=== PATIENT | male | born 1975 | race Caucasian/White ===

== ENCOUNTER → 2022-10-26 11:17 | Outpatient (BNVA) | payer BC, SELFPAY | PROVIDERS: Visit Provider Specialist | DX: E78.5 Hyperlipidemia, unspecified (principal); I10 Essential (primary) hypertension; I25.10 Atherosclerotic heart disease of native coronary artery without angina pectoris | CPT/HCPCS: 36415; 80061; 80076 ==

== ENCOUNTER → 2022-10-28 07:45 | Outpatient (BNVA) | payer BC, SELFPAY | PROVIDERS: Visit Provider Specialist | DX: R07.9 Chest pain, unspecified (principal) | CPT/HCPCS: 93005 ==

== ENCOUNTER → 2023-04-27 10:37 | Outpatient (BNVA) | payer BC, SELFPAY | PROVIDERS: Visit Provider Internal Medicine Cardiovascular Disease | DX: R00.1 Bradycardia, unspecified (principal); R06.02 Shortness of breath; R25.2 Cramp and spasm; N18.9 Chronic kidney disease, unspecified; Z79.899 Other long term (current) drug therapy | CPT/HCPCS: 36415; 80048; 83735; 84443; 93005 ==

== ENCOUNTER 2023-05-11 09:10 | Outpatient (CLI) | payer BC, SELFPAY ==
--- NOTE | 2023-05-11 10:15 | USCV_ITS ---
Andre Li Age: 48 Gender: M : 1975 Exam Date: 05/11/2023 09:40 Ordering Phys: Maria L Simms MD ([email or web address]) Technologist: Exam Location: [facility] [place] Indication: abnormal ekg BP: 130 / 80 HR: 68 Rhythm: Sinus Technical Quality: Adequate MEASUREMENTS (Male / Female) Normal Values 2D ECHO LV Diastolic Diameter PLAX 4.1 cm 4.2 - 5.9 / 3.9 - 5.3 cm LV Systolic Diameter PLAX 2.1 cm IVS Diastolic Thickness 1.1 cm 0.6 - 1.0 / 0.6 - 0.9 cm IVS Systolic Thickness 1.5 cm LVPW Diastolic Thickness 1.0 cm 0.6 - 1.0 / 0.6 - 0.9 cm LVPW Systolic Thickness 1.5 cm LVOT Diameter 2.1 cm LV Ejection Fraction 2D Teich 80.6 % LV Ejection Fraction MOD 2C 63.8 % LV Ejection Fraction 2C AL 63.6 % LA Diameter 4.0 cm IVC Diameter 1.9 cm M-MODE Aortic Annulus Diameter 3.4 cm LA Ao Ratio MM 1.4 MV E Point Septal Separation 1.1 cm DOPPLER AV Peak Velocity 189.0 cm/s LVOT Peak Velocity 133.0 cm/s AV Area Cont Eq vti 2.4 cm squared AV Area Cont Eq pk 2.3 cm squared MV Area PHT 3.3 cm squared Mitral E to A Ratio 2.7 MV E' Velocity 42.5 cm/s Mitral E to MV E' Ratio 7.7 Mitral E to LV E' Lateral Ratio 5.9 Mitral E to LV E' Septal Ratio 10.8 TR Peak Velocity 189.7 cm/s TR Peak Gradient 14.4 mmHg TV Peak E Velocity 94.0 cm/s Right Atrial Pressure 3.0 mmHg Pulmonary Artery Systolic Pressu 17.4 mmHg RV Acceleration Time 0.1 s FINDINGS Left Ventricle Normal left ventricular size and systolic function, EF 70 %. No gross wall motion abnormalities. Because of the frequent PVCs, segmental wall motion analysis is somewhat difficult.Grade I/IV diastolic dysfunction (abnormal relaxation filling pattern), normal to mildly elevated filling pressures. Right Ventricle The right ventricle is normal in size and function. Right Atrium The right atrium is normal in size. Left Atrium Mildly increased left atrial size. Mitral Valve No gross abnormalities no Aortic Valve No gross abnormalities noted Tricuspid Valve Trace tricuspid valve regurgitation. Pulmonic Valve Mild pulmonary valve regurgitation. Pericardium Normal pericardium without effusion. Aorta Normal ascending aorta dimension. IVC The inferior vena cava appears normal. CONCLUSIONS Normal left ventricular size and systolic function, EF 70 %. No gross wall motion abnormalities. Because of the frequent PVCs, segmental wall motion analysis is somewhat difficult. Some features of grade 1 left-ventricular diastolic dysfunction Mildly increased left atrial size. Trace tricuspid valve regurgitation. There is no pericardial effusion. There are no intracardiac masses. Compared to the study from 10/17/2015, there may not be a significant change Dr Maria L Simms MD [facility] (Electronically Signed) Final Date: 16 May 2023 09:13 S
== END 2023-05-11 09:11 | disposition home or self-care (01) ==
LOC: RAD 09:10
PROVIDERS: Visit Provider Internal Medicine Cardiovascular Disease
DX: R06.09 Other forms of dyspnea (principal); R07.9 Chest pain, unspecified; I49.3 Ventricular premature depolarization; I49.8 Other specified cardiac arrhythmias; R06.02 Shortness of breath; R94.31 Abnormal electrocardiogram [ECG] [EKG]; I51.89 Other ill-defined heart diseases; I51.7 Cardiomegaly
CPT/HCPCS: 93306

== ENCOUNTER 2023-05-13 07:46 | Outpatient (CLI) | payer BC, SELFPAY ==
--- NOTE | 2023-05-13 | ECG_ITS ---
[facility] Test Date: 2023-05-13 Pat Name: Andre Li Department: Room: Gender: Male Boy'S Adviser: Darwin Rangel : 1975 Requested By: Maria L Simms Order Number: [id number] Timi MD: Maria L Simms M.D. Interpretive Statements NAME OF STUDY: EXERCISE SESTAMIBI STRESS TEST INDICATION: Chest Pain; Shortness of Breath, PROCEDURE: The baseline electrocardiogram showed [normal sinus rhythm with frequent PVCs. Diffuse nonspecific T wave changes.. At the baseline, the patient's blood pressure was 122/97 mm Hg with a heart rate of 76. The patient exercised for 8 minutes and 15 seconds on a standard Kane protocol. Patient attained a maximum heart rate of 152 beats per minute(89% of the maximum predicted heart rate) with a blood pressure at the peak exercise of 191/118 mm Hg. The EKG at the peak exercise revealed no significant changes the resting PVCs almost disappeared.. Patient did not have any chest pain or any significant arrhythmis with the exercise Sestamibi was injected 1 minute prior to the peak exercise During the recovery phase, there were no new changes. The EKG reverted back to baseline PVCs. Blood pressure at the end of the recovery phase was 149/90 mm Hg with a heart rate of 96 per minute. CONCLUSION: 1. No significant EKG changes with the [treadmill exercise 2. No exercise-induced chest pain or cardiac arrhythmia 3. Impaired exercise tolerance, attained a maximum of 10.2 METs 4. Sestamibi/Sestamibi perfusion results pending; see separate report. Electronically Signed On 05-20-2023 16:22:15 [facility] by Maria L Simms M.D. [id number]
[2023-05-13 08:06] VITALS: BMI 35.2
--- NOTE | 2023-05-13 08:07 | NMCV_ITS ---
NM sylvain perf SPECT r/s* [id number] Andre Li Age: 48 Gender: M : 1975 Exam Date: 05/13/2023 08:07 Ordering Phys: Maria L Simms MD ([email or web address]) Technologist: ROXANNE Concepcion Exam Location: [facility] Indications: CORONARY ANGIOPLASTY STATUS STRESS TEST Please see separate stress test report in [facility] for full findings IMAGE PROTOCOL Rest/Stress 1 Exercise Day Radiopharmaceutical Dose (mCi) Administration Site Administered by Rest: Tc-99m 10.6 IV ROXANNE Concepcion Sestamibi Stress:Tc-99m 32.5 IV ROXANNE Ware Sestamibi Rest: 13-May-2023 60 Discovery 630 Stress: 13-May-2023 15 Discovery 630 Radiopharmaceutical was injected at 85 % maximum heart rate. Images obtained in supine and prone position. SPECT RESULTS Technical Quality: Excellent Raw Data Analysis: Normal Image Corrections: No attenuation or motion correction applied Summed Stress Score: 1 Summed Rest Score: 7 Summed Difference Score: 0 PERFUSION FINDINGS Patchy areas of slightly decreased tracer uptake was noted in the anterolateral and anteroseptal regions. No significant reversibility was noted in these regions. FUNCTIONAL RESULTS (calculated via Gated SPECT) Stress Image LV EF (%): 64 Stress EDV (mL):98 TID: 0.83 Stress ESV (mL):35 FUNCTIONAL FINDINGS: Segmental wall motion analysis revealing no gross wall motion abnormalities IMPRESSIONS 1. Patchy areas of persistent decreased tracer uptake were noted in the anteroseptal and anterolateral regions, most likely represent attenuation artifact. 2. Normal LV ejection fraction of 64%. 3. LV wall motion analysis revealing no gross wall motion abnormalities. 4. Normal LV volume Low probability for coronary ischemia, based on the above findings No similar previous studies are available for comparison Dr Maria L Simms MD [facility] (Electronically Signed) Final Date: 13 May 2023 15:33 S
[2023-05-13 09:45] VITALS: BP 149/90; PULSE 96
== END 2023-05-13 07:47 | disposition home or self-care (01) ==
PROVIDERS: Visit Provider Internal Medicine Cardiovascular Disease
DX: R07.9 Chest pain, unspecified (principal); R06.02 Shortness of breath; Z98.61 Coronary angioplasty status
CPT/HCPCS: 36415; 78452; 93017; A9500

== ENCOUNTER → 2025-03-26 11:03 | Outpatient (BNVA) | payer BC, SELFPAY | PROVIDERS: Visit Provider Internal Medicine Cardiovascular Disease | DX: R07.9 Chest pain, unspecified (principal); I49.9 Cardiac arrhythmia, unspecified | CPT/HCPCS: 93005 ==